=== PATIENT | female | born 1960 | race Two or more races ===

== ENCOUNTER 2024-08-29 09:18 | Emergency (ER) | payer OTHER ==
[~2024-08-29] VITALS: Ht 160 cm; Wt 107.0 kg
--- NOTE | 2024-08-29 09:33 | ED.PDOC ---
History of Present Illness HPI Comments 63 year old female presents to the ED with a chief complaint of fall onset today (08/29/24). Patient was walking when she fell and landed on the ground. Patient states she is currently experiencing lower lip bleeding, bilateral knee pain. 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 Upon triage BS was 131, BP was 132/71. PMHx HTN, DM. Denies LOC, head injury, headache, nausea, vomiting, diarrhea,dizziness, chest pain, shortness of breath, blurry vision. No other symptoms or modifying factors present at this time. 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 Mode of Arrival: Ambulatory Severity: Moderate Timing: Minutes Duration: Since onset Prehospital treatment: None Past Medical History PAST MEDICAL HISTORY: DM, HTN Surgical History: Denies all surgeries LIME TRIMMER History: No Pertinent LIME TRIMMER History Family History Family History: Reviewed,noncontributory to illness, No family hx of Cancer, No family hx of DM, No family hx of Heart gabriela, No family hx of HTN, No family hx ofKidney gabriela, No family hx of Liver gabriela, No family hx of Lung gabriela, No family hx of Stroke Social History Smoker: Non-Smoker Alcohol: Denies ETOH Use Drugs: Denies Drug Use Lives In: Home Constitutional: denies: chills, diaphoresis, fatigue, fever, malaise, sweats, weakness, others EENTM: reports: others (lower lip bleeding); denies: blurred vision, double vision, ear bleeding, ear discharge, ear drainage, ear pain, ear ringing, eye pain, eye redness, hearing loss, mouth pain, mouth swelling, nasal discharge, nose bleeding, nose congestion, nose pain, photophobia, tearing, throat pain, throat swelling, voice changes Respiratory: denies: cough, hemoptysis, orthopnea, SOB at rest, shortness of breath, SOB with excertion, stridor, wheezing, others Cardiovascular: denies: chest pain, dizzy spells, diaphoresis, Dyspnea on exertion, edema, irregular heart beat, left arm pain, lightheadedness, palpitations, PND, syncope, others Gastrointestinal: denies: abdomen distended, abdominal pain, blood streaked bowels, constipated, diarrhea, dysphagia, difficulty swallowing, hematemesis, melena, nausea, poor appetite, poor fluid intake, rectal bleeding, rectal pain, vomiting, others Genitourinary: denies: abnormal vagina bleeding, burning, dyspareunia, dysuria, flank pain, frequency, hematuria, incontinence, pain, , vagina discharge, urgency, others Neurological: denies: dizziness, fainting, headache, left sided numbness, left sided weakness, numbness, paresthesia, pre-existing deficit, right sided numbness, right sided weakness, seizure, speech problems, tingling, tremors, weakness, others Musculoskeletal: reports: others (Bilateral knee pain); denies: back pain, gout, joint pain, joint swelling, muscle pain, muscle stiffness, neck pain Integumetry: denies: bruises, change in color, change in hair/nails, dryness, laceration, lesions, lumps, rash, wounds, others Allergic/Immunocompromised: denies: Difficulty Healing, Frequent Infections, Hives, Itching, others Hematologic/Lymphatic: denies: anemia, blood clots, easy bleeding, easy bruising, swollen glands, others Endocrine: denies: excessive hunger, excessive sweating, excessive thirst, excessive urination, flushing, intolerance to cold, intolerance to heat, unexplained weight gain, unexplained weight loss, others Psychiatric: denies: anxiety, bipolar disorder, depression, hopeless, panic disorder, schizophrenia, sleepless, suicidal, others All Other Systems: Reviewed and Negative Physical Exam General Appearance: No Apparent Distress, Normal HEENT: Normal ENT Inspection, Pharynx Normal, TMs Normal Neck: Full Range of Motion, Non-Tender, Normal, Normal Inspection Respiratory: Chest Non-Tender, Lungs Clear, No Accessory Muscle Use, No Respiratory Distress, Normal Breath Sounds Cardiovascular: No Edema, No JVD, No Murmur, No Gallop, Normal Peripheral Pulses, Regular Rate/Rhythm Breast Exam: Deferred Gastrointestinal: No Organomegaly, Non Tender, No Pulsatile Mass, Normal Bowel Sounds, Soft Genitalia: Deferred Pelvic: Deferred Rectal: Deferred Extremities: No calf tenderness, Normal capillary refill, Normal inspection, Normal range of motion, Non-tender, No pedal edema Musculoskeletal : Apperance: Normal Neurologic: Alert, external grinder tool II-XII nml as Tested, No Motor Deficits, Normal Affect, Normal Mood, No Sensory Deficits Cerebellar Function: Normal Reflexes: Normal Skin: Dry, Normal Color, Warm Lymphatic: No Adenopathy Was a procedure done? Was a procedure done?: No Differential Dx Considerations may include: Sprain, strain, fracture, intracranial injury X-Ray, Labs, Meds, VS Vital Signs Date Time Temp Pulse Resp B/P (MAP) Pulse Ox O2 Delivery O2 Flow Rate FiO2 08/29/24 09:23 97.8 74 18 132/71 (91) 97 97.8 08/29/24 09:21 [address] [place] [address] Ph: [phone] DIAGNOSTIC IMAGING Diagnostic Imaging Report : [id number] Signed PATIENT: LEXIS ZAPATA ACCT: [id number] UNIT: [id number] : 1960 LOC: ER ROOM / BED: / AGE / SEX: 63 / F ADM STATUS: REG ER SERVICE 6 ORDERING PHYSICIAN: MYAH BOLES MD PROCEDURE(s): CXRP - CHEST PORTABLE REASON: fall ORDER NUMBER(s): [id number], ACCESSION NUMBER(s): [id number] CHEST RADIOGRAPH Indication: Pain Technique: Single frontal view of the chest was obtained COMPARISON: None FINDINGS: Lines and Tubes: None Lungs: Clear Pleura: No effusion. No pneumothorax. Cardiomediastinal contours: Unremarkable Bones: Unremarkable IMPRESSION: No acute disease. ATED BY: RON PALENCIA MD DICTATED DATE/TIME: 08/29/24957 SIGNED BY: RON PALENCIA MD SIGNED DATE/TIME: 08/29/24957 CC: [place] [id number] Ph: [phone] DIAGNOSTIC IMAGING Diagnostic Imaging Report : [id number] Signed PATIENT: LEXIS ZAPATA ACCT: [id number] UNIT: [id number] : 1960 LOC: ER ROOM / BED: / AGE / SEX: 63 / F ADM STATUS: REG ER SERVICE 6 ORDERING PHYSICIAN: MYAH BOLES MD PROCEDURE(s): HWOCT - HEAD WITHOUT CONTRAST REASON: fall ORDER NUMBER(s): [id number], ACCESSION NUMBER(s): [id number] CT HEAD WITHOUT CONTRAST INDICATION: fall : 63 old Female fall EXAM DATE: 08/29/2024 09:35 AM COMPARISON: None RADIATION DOSE: CTDIvol: 52 mGy, DLP: 1032 mGy*cm PROCEDURE: CT scans of the head were obtained from the vertex to the skull base. Sagittal and coronal reconstructions were provided. All CT scans at this medical facility are performed using dose modulation techniques as appropriate to a performed exam including the following: Automated exposure control was utilized; adjustment of the MA and/or KV according to patient size; and use of iterative reconstruction technique. FINDINGS: There is sulcal and ventricular prominence. The brainshows normal morphology and weathers-white matter differentiation, without intracranial hemorrhage, extra-axial fluid collection, mass effect or acute large vessel infarct. The ventricles are normal in size. The basal cisterns are patent. The skull and visible facial bones are intact. The paranasal sinuses, mastoid air cells and middle ear cavities are well-aerated. The soft tissues of the scalp are unremarkable. IMPRESSION: No acute intracranial abnormality. ATED BY: PATRICK SUH MD DICTATED DATE/TIME: 08/29/24 1016 SIGNED BY: PATRICK SUH MD SIGNED DATE/TIME: 08/29/24 1016 CC: [place] [id number] Ph: [phone] DIAGNOSTIC IMAGING Diagnostic Imaging Report : [id number] Signed PATIENT: LEXIS ZAPATA ACCT: [id number] UNIT: [id number] : 1960 LOC: ER ROOM / BED: / AGE / SEX: 63 / F ADM STATUS: REG ER SERVICE 6 ORDERING PHYSICIAN: MYAH BOLES MD PROCEDURE(s): PELVS - PELVIS AP REASON: fall ORDER NUMBER(s): [id number], ACCESSION NUMBER(s): [id number] CLINICAL INDICATION: Trauma, pain fall TECHNIQUE: XY PELVIS AP Comparison: None FINDINGS/IMPRESSION: : There is no evidence of acute fracture or dislocation. Soft tissues are unremarkable. 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 ATED BY: RON PALENCIA MD DICTATED DATE/TIME: 08/29/24958 SIGNED BY: RON PALENCIA MD SIGNED DATE/TIME: 08/29/24958 CC: Time of 1ST Reevaluation: 09:54 Reevaluation 1ST: Unchanged Patient Education/Counseling: Diagnosis, Treatment, Prognosis Family Education/Counseling: Diagnosis, Treatment, Prognosis Additional Information The following tests were ordered, and results were reviewed by me:XY CHEST, CT HEAD WO CONTRAST, XY PELVIS AP Additional Information was gathered from interviewing the following independent historians: caregiver I reviewed and agreed with the following test results read by other providers: XY CHEST, CT HEAD WO CONTRAST, XY PELVIS AP I discussed treatment and results with medical personnel and: patient, caregiver Comprehensive systems review obtained and negative except for what is stated in the HPI. Departure 1 Departure Time of Disposition: 10:38 (Patient fell the forceps sounds she has a injured. We will discharge patient home with outpatient follow up) Impression: Primary Impression: Fall Qualified Codes: W19.XXXA - Unspecified fall, initial encounter Disposition: HOME / SELF CARE / HOMELESS Condition: Stable Additional Instructions: You fell today. Fortunately you were not seriously injured. Your workup today was benign. You may be more sore than normal for the next few days. For pain you can take the followinam: Ibuprofen 400mg with food Noon: Acetaminophen 1000mg 4pm: Ibuprofen 400mg with food 8pm: Acetaminophen 1000mg You should follow up with your regular doctor within one week. If your symptoms worsen or you have any other concerns then please return to the emergency room. Discharged With: Self Critical Care Note Critical Care Time?: No Stability Stability form required: No I personally scribed for MYAH BOLES MD ([email or web address]) on 08/29/24 at 09:33. Electronically submitted by Lurdes Davenport ([email or web address]). I personally scribed for MYAH BOLES MD ([email or web address]) on 08/29/24 at 09:34. Electronically submitted by Lurdes Davenport ([email or web address]). I personally scribed for MYAH BOLES MD ([email or web address]) on 08/29/24 at 10:26. Electronically submitted by Lurdes Davenport ([email or web address]). MYAH BOLES MD August 29, 2024 09:33
--- NOTE | 2024-08-29 10:01 | DVH ---
CLINICAL INDICATION: Trauma, pain fall TECHNIQUE: XY PELVIS AP Comparison: None FINDINGS/IMPRESSION: : There is no evidence of acute fracture or dislocation. Soft tissues are unremarkable. 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
--- NOTE | 2024-08-29 10:01 | DVH ---
CHEST RADIOGRAPH Indication: Pain Technique: Single frontal view of the chest was obtained COMPARISON: None FINDINGS: Lines and Tubes: None Lungs: Clear Pleura: No effusion. No pneumothorax. Cardiomediastinal contours: Unremarkable Bones: Unremarkable IMPRESSION: No acute disease.
--- NOTE | 2024-08-29 10:18 | DVH ---
CT HEAD WITHOUT CONTRAST INDICATION: fall : 63 old Female fall EXAM DATE: 08/29/2024 09:35 AM COMPARISON: None RADIATION DOSE: CTDIvol: 52 mGy, DLP: 1032 mGy*cm PROCEDURE: CT scans of the head were obtained from the vertex to the skull base. Sagittal and coronal reconstructions were provided. All CT scans at this medical facility are performed using dose modulation techniques as appropriate t o a performed exam including the following: Automated exposure control was utilized; adjustment of th e MA and/or KV according to patient size; and use of iterative reconstruction technique. FINDINGS: There is sulcal and ventricular prominence. The brainshows normal morphology and weathers-whi te matter differentiation, without intracranial hemorrhage, extra-axial fluid collection, mass effect or acute large vessel infarct. The ventricles are normal in size. The basal cisterns are patent. The skull and visible facial bones are intact. The paranasal sinuses, mastoid air cells and middle ear c avities are well-aerated. The soft tissues of the scalp are unremarkable. IMPRESSION: No acute intracranial abnormality.
[2024-08-29 10:53] VITALS: BP 132/71; PULSE 66; RESP 16; TEMP 97.8; O2SAT 96
--- NOTE | 2024-08-31 14:01 | ECG ---
[facility] Test Date: 2024-08-29 Test Time: 09:21:25 Pat Name: LEXIS ZAPATA Department: ER Room: Gender: F Car Changer: SULMA : 1960 Requested By: MYAH BOLES Order Number: [id number] Reading MD: Michael Mi Measurements Intervals [place] Rate: 75 P: 257 TN: 110 QRS: 44 QRSD: 92 T: 40 QT: 381 QTc: 426 Interpretive Statements Ectopic atrial rhythm Borderline short TN interval Low voltage, precordial leads Borderline ST depression, lateral leads Minimal ST elevation, inferior leads Baseline wander in lead(s) I,II,III,aVR,aVL,V1,V4,V5,V6 Electronically Signed On 09-01-2024 20:42:07 PDT by Michael Mi Please click the below link to view image of tracing.
== END 2024-08-29 10:55 | disposition home or self-care (01) ==
LOC: ER 09:18
DX: M25.561 Pain in right knee (principal); M25.562 Pain in left knee; I10 Essential (primary) hypertension; E11.9 Type 2 diabetes mellitus without complications; Z91.81 History of falling; W18.39XA Other fall on same level, initial encounter; Y93.01 Activity, walking, marching and hiking; Y92.89 Other specified places as the place of occurrence of the external cause; Y99.8 Other external cause status
CPT/HCPCS: 70450; 71045; 72170; 93005